=== PATIENT | male | born 2000 | race Caucasian/White ===

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

== ENCOUNTER 2021-05-21 04:07 | Observation (INO) ==
[2021-05-21] MEDS ORDERED: Dexamethasone Sodium Phos/PF 10 MG/ML VIAL PO ONE (04:41)
[2021-05-21] MEDS ORDERED: cefTRIAXone 1,000 MG in 0.9 % Sodium Chloride Mini Bag 100 ML IVPB ONE (06:08)
[2021-05-21 06:35] LABS: Basophils # 0.1 K/mcL (0.0-0.2); Basophils % 0.6 %; Eosinophils # 0.2 K/mcL (0.0-0.6); Eosinophils % 1.8 %; Hematocrit 44.7 % (37.5-50.1); Immature Granulocytes % 0.3 % (0-4); Lymphocytes # 2.2 K/mcL (0.6-4.6); Lymphocytes % 20.4 %; Mean Corpuscular HGB Conc 33.6 g/dL (31.6-35.5); Mean Corpuscular Hemoglobin 29.6 pg (28.0-33.3); Mean Corpuscular Volume 88.2 fL (83.0-100.0); Mean Platelet Volume 10.2 fL (9.4-12.4); Monocytes # 0.8 K/mcL (0.0-1.3); Monocytes % 7.8 %; Neutrophils # 7.4 K/mcL (1.6-8.9); Platelet Count 192 K/mcL (140-400); Red Blood Count 5.07 M/mcL (4.19-5.50); Red Cell Distribution Width 11.9 % (11.5-14.5); Segmented Neutrophils % 69.1 %; White Blood Count 10.8 K/mcL (4.3-11.1)
[2021-05-21 06:55] LABS: BUN/Creatinine Ratio 19 (6-26); Blood Urea Nitrogen 19 mg/dL (6-20); Calcium 9.4 mg/dL (8.6-10.3); Carbon Dioxide 25 mEq/L (23-29); Chloride 104 mEq/L (98-107); Glucose 107 mg/dL (70-105); Osmolality,Calculated 287 (280-300); Potassium 3.6 mEq/L (3.5-5.1); Sodium 137 mEq/L (136-145); eGFR For African Americans > 60 (> 60); eGFR For Non-African Americans > 60 (> 60)
[2021-05-21] MEDS ORDERED: Acetaminophen 325 MG TABLET PO PRN (08:38)
[2021-05-21] MEDS ORDERED: Ondansetron 4 MG/2 ML VIAL IVP PRN (08:38)
[2021-05-21] MEDS ORDERED: Naloxone 0.4 MG/ML INJ IVP PRN (08:38)
[2021-05-21] MEDS ORDERED: Isovue-370 500 ML BOTTLE IVP ONE (08:54)
[2021-05-21] MEDS ORDERED: *HR* HYDROcodone/Acet 5/325 mg TABLET PO PRN (09:12)
[2021-05-21] MEDS: Piperacillin/Tazobactam 3.375 GM in 0.9 % Sodium Chloride Mini Bag 100 ML IVPB SCH ×3 (10:37→22:59)
[2021-05-21] MEDS ORDERED: Famotidine 20 MG/2 ML VIAL IVP ONE (13:00)
[2021-05-22 01:19] LABS: Basophils % 0.1 %; Eosinophils % 0.1 %; Hematocrit 44.8 % (37.5-50.1); Immature Granulocytes % 0.4 % (0-4); Lymphocytes # 1.1 K/mcL (0.6-4.6); Lymphocytes % 8.3 %; Mean Corpuscular HGB Conc 33.5 g/dL (31.6-35.5); Mean Corpuscular Hemoglobin 29.3 pg (28.0-33.3); Mean Corpuscular Volume 87.5 fL (83.0-100.0); Mean Platelet Volume 10.3 fL (9.4-12.4); Monocytes # 0.7 K/mcL (0.0-1.3); Monocytes % 5.2 %; Neutrophils # 11.9 K/mcL (1.6-8.9); Platelet Count 244 K/mcL (140-400); Red Blood Count 5.12 M/mcL (4.19-5.50); Red Cell Distribution Width 11.9 % (11.5-14.5); Segmented Neutrophils % 85.9 %; White Blood Count 13.8 K/mcL (4.3-11.1)
[2021-05-22 01:42] LABS: BUN/Creatinine Ratio 16 (6-26); Blood Urea Nitrogen 16 mg/dL (6-20); Calcium 9.8 mg/dL (8.6-10.3); Carbon Dioxide 20 mEq/L (23-29); Chloride 107 mEq/L (98-107); Glucose 148 mg/dL (70-105); Magnesium 2.2 mg/dL (1.6-2.6); Osmolality,Calculated 290 (280-300); Potassium 3.9 mEq/L (3.5-5.1); Sodium 138 mEq/L (136-145); eGFR For African Americans > 60 (> 60); eGFR For Non-African Americans > 60 (> 60)
[2021-05-22] MEDS: Piperacillin/Tazobactam 3.375 GM in 0.9 % Sodium Chloride Mini Bag 100 ML IVPB SCH (08:30)
[2021-05-22 13:46] VITALS: BP 121/76; PULSE 87; TEMP 98.2; O2SAT 96
== END 2021-05-22 18:20 | disposition home or self-care (01) ==
LOC: 3NENU 04:07 → EMEROOARM 04:07 → SUATTDRO 07:59 → 3NENU 08:22
PROVIDERS: ADMIT Pharmacist; ATTEND Internal Medicine